=== PATIENT | female | born 1975 | race African-American/Black ===

== ENCOUNTER 2016-12-17 05:19 | Day surgery (SDC) | payer BC ==
[2016-12-15 16:10] VITALS: BMI 39.1
[2016-12-17] MEDS ORDERED: MIDAZOLAM HCL 2 MG/2 ML SINGLE DOSE VIAL ONE (08:41)
[2016-12-17] MEDS ORDERED: PROPOFOL 20 ML ONE ×2 (08:41)
[2016-12-17] MEDS ORDERED: IBUPROFEN 800 MG/8 ML IJ IVPB ONE (08:48)
[2016-12-17] MEDS ORDERED: ONDANSETRON 4 MG/2 ML VIAL IVPUSH PRN (09:41)
[2016-12-17] MEDS ORDERED: oxyCODONE HCL 5 MG TABLET PO PRN (09:41)
[2016-12-17] MEDS ORDERED: LACTATED RINGERS SOLUTION 1,000 ML IV SCH (09:45)
--- NOTE | 2016-12-17 10:10 | OP ---
DATE OF OPERATION: 12/17/2016 PREOPERATIVE DIAGNOSIS: Abnormal uterine bleeding, leiomyomatous uterus. OPERATION : Suction dilatation and curettage and hysteroscopy. SURGEON: Katerina Estevez MD ANESTHESIA: General. ANESTHESIOLOGIST: Lisseth Gonzalez MD FINDINGS: A large amount of clots coming out of the os, uterus enlarged. DESCRIPTION OF PROCEDURE: Patient was taken to the operating room and placed in dorsal lithotomy position, prepped and draped in the usual sterile fashion. A timeout was performed in compliance with hospital regulation. Speculum was placed in the vagina. Anterior lip of the cervix grasped with a single-tooth tenaculum. Clots were seen coming out of the cervical os. Cervix was then dilated to accommodate the number 8 curette. Suction curettage was then performed, followed by hysteroscopy. Visualization revealed no endometrial polyps and no fibroids. All instruments were then removed. Patient tolerated the procedure well. ESTIMATED BLOOD LOSS: 30 mL Malaika ANDERSON/[id number]
[2016-12-17 10:28] VITALS: TEMP 97.7
[2016-12-17 12:40] VITALS: BP 118/74; PULSE 71
[2016-12-17] MEDS ORDERED: IBUPROFEN 400 MG TABLET (FP) PO PRN (13:30)
[2016-12-17] MEDS ORDERED: ACETAMINOPHEN 325 MG TABLET (FP) PO PRN (13:30)
--- NOTE | 2016-12-17 13:32 | HP ---
History & Physical Update - History History: No Change - Physical Physical: No Change - Assessment Assessment: No Change - Plan Plan: No Change
--- NOTE | 2016-12-17 13:37 | OP ---
Operative Note - Note: Operative Date: 12/17/16 Pre-Operative Diagnosis: nal bleeding iabnormal vag Operation: hysteroscopy DC Findings: no polyps or myomas seen Post-Operative Diagnosis: Same as Pre-op Surgeon: Katerina Estevez Anesthesia: General Operative Report Dictated: Yes
--- NOTE | 2016-12-18 12:13 | PATH ---
Surgical Pathology Report Patient Name: FABIOLA RAHMAN Med. Rec. #: [id number] /Age/Gender: 1975 (Age: 41) / F Account: [id number] Location: [facility] SURGICAL Taken: 12/17/2016 Received: 12/17/2016 Reported: 12/18/2016 Physicians: Katerina Estevez M.D. Specimen(s) Received UTERINE CONTENTS Clinical History Abnormal uterine bleeding Final Diagnosis UTERUS, SUCTION CURETTAGE: PROLIFERATIVE ENDOMETRIUM WITH FOCAL AREA SUGGESTIVE OF DISORDERED PROLIFERATIVE ENDOMETRIUM. NO ENDOMETRIAL HYPERPLASIA OR CARCINOMA IDENTIFIED. Electronically Signed Levon Rai M.D. Gross Description Received in formalin labeled "uterine contents," is a 2.5 x 2.3 x 0.3 cm aggregate of schmitt soft tissue fragments. The formalin is filtered and the specimen is entirely submitted in one cassette. /12/17/201612/17/2016
== END 2016-12-17 13:10 | disposition home or self-care (01) ==
LOC: JASU-SURG 05:19
PROVIDERS: ATTEND Obstetrics & Gynecology
PROC: 0UDB8ZX Extraction of Endometrium, Via Natural or Artificial Opening Endoscopic, Diagnostic (ICD-10-PCS; principal; 2016-12-17 08:30)
DX: N93.9 Abnormal uterine and vaginal bleeding, unspecified (principal); D25.9 Leiomyoma of uterus, unspecified
CPT/HCPCS: 88305-TC; 94760

== ENCOUNTER 2017-03-17 14:29 | Observation (INO) | payer BC ==
[2017-03-17 14:36] VITALS: BMI 39.1
--- NOTE | 2017-03-17 14:50 | PDOC ---
History of Present Illness - General Chief Complaint: Blood Transfusion Stated Complaint: Blood Transfusion SENT BY PCP Time Seen by Provider: 03/17/17 14:32 History Source: Patient - History of Present Illness Initial Comments: 03/17/17 15:07 Patient is a 41 y.o. female who presents at the behest of her induction machine operator after pre- operative labs showed a Hb 6.9. Patient is scheduled for a uterine myomectomy 2 / to fibroids on 03/22/17. Patient notes she has had active vaginal bleeding for > 1 month and uses 10 pads daily. Patient endorses lightheadedness, palpitations, shortness of breath. Past History - Past Medical History Allergies/Adverse Reactions: Allergies Allergy/AdvReac Type Severity Reaction Status Date / Time No Known Allergies Allergy Verified 03/17/17 14:35 Home Medications: Ambulatory Orders Ibuprofen [Advil -] 400 mg PO PRN 12/17/16 Ibuprofen [Motrin -] 400 mg PO PRN 12/17/16 Anemia: Yes COPD: No - Reproductive History (#): 5 Para: 3 Therapeutic (s) & number: Yes (2) Tubal Ligation: Yes Spontaneous : 0 - Suicide/Smoking/Psychosocial Hx Smoking Status: No Smoking History: Never smoked Number of Cigarettes Smoked Daily: 0 Hx Alcohol Use: No Drug/Substance Use Hx: No Substance Use Type: None Review of Systems - Review of Systems Constitutional: No: Chills, Fever HEENTM: No: Blurred Vision, Double Vision Respiratory: Yes: Shortness of Breath. No: Cough Cardiac (ROS): Yes: Lightheadedness, Palpitations. No: Chest Pain ABD/GI: No: Constipated, Diarrhea, Nausea, Vomiting : Yes: Other (vaginal bleeding). No: Burning, Dysuria All Other Systems: Reviewed and Negative *Physical Exam - Vital Signs Last Vital Signs Temp Pulse Resp BP Pulse Ox 98.3 F 96 H 20 110/67 100 03/17/17 14:31 03/17/17 14:31 03/17/17 14:31 03/17/17 14:31 03/17/17 14:31 - Physical Exam General Appearance: Yes: Nourished, Appropriately Dressed Neck: positive: Trachea midline, Supple Respiratory/Chest: positive: Lungs Clear, Normal Breath Sounds. negative: Respiratory Distress, Accessory Muscle Use Cardiovascular: positive: S1, S2, Tachycardia Female Pelvic Exam: positive: cervical os closed, vaginal bleeding (pooling of blood in vaginal vault; closed cervical os) Gastrointestinal/Abdominal: positive: Soft Integumentary: positive: Normal Color, Dry, Warm Neurologic: positive: Fully Oriented, Alert ED Treatment Course - LABORATORY CBC & Chemistry Diagram: 03/17/17 14:50 03/17/17 14:50 Medical Decision Making - Medical Decision Making 03/17/17 16:12 Patient is a 41 y.o. female who presents with low Hb (pre-operative of 6.9 @ induction machine operator Office) and repeat of 7.3 in our ED who presents for blood transfusion prior to her myomectomy scheduled for 03/22/17. On PE patient is hemodynamically stable and pelvic exam shows pooling of blood in the vaginal vault with closed cervical os and some vaginal wall bulging. Patient's induction machine operator Dr. Hernandez contacted -- requests to not change date (03/22) of previously scheduled myomectomy. Patient admitted to hospitalist service, Dr. Quijano for transfusion and H&H monitoring. *DC/Admit/Observation/Transfer Diagnosis at time of Disposition: Anemia Qualifiers: Anemia type: unspecified type Qualified Code(s): D64.9 - Anemia, unspecified - Referrals - Patient Instructions - Post Discharge Activity
--- NOTE | 2017-03-17 14:54 | PDOC ---
Rapid Medical Evaluation Chief Complaint: Blood Transfusion Time Seen by Provider: 03/17/17 14:32 Medical Evaluation: Allergies Allergy/AdvReac Type Severity Reaction Status Date / Time No Known Allergies Allergy Verified 03/17/17 14:35 Vital Signs Temp Pulse Resp BP Pulse Ox 98.3 F 96 H 20 110/67 100 03/17/17 14:31 03/17/17 14:31 03/17/17 14:31 03/17/17 14:31 03/17/17 14:31 03/17/17 14:54 I have performed a brief in-person evaluation of this patient. The patient presents with a chief complaint of: Hg 6.9, sent per Dr. Estevez ( OBGYN) s/p pre-op labs this morning. I have ordered the following: Labs, EKG, PRBC The patient will proceed to the ED for further evaluation. Discharge Disposition - Diagnosis Anemia Qualifiers: Anemia type: unspecified type Qualified Code(s): D64.9 - Anemia, unspecified - Referrals - Patient Instructions - Post Discharge Activity
[2017-03-17 15:16] LABS: MCH 26.9 pg (25.7-33.7); MCHC 32.3 g/dl (32.0-36.0); MEAN CELL VOLUME 83.4 fl (80-96); MEAN PLT VOLUME 8.7 fl (7.5-11.1); PLATELET COUNT 314 K/MM3 (134-434); WHITE BLOOD COUNT 7.7 K/mm3 (4.0-10.0)
[2017-03-17 15:35] LABS: INR 1.09 (0.82-1.09); PROTHROMBIN TIME (PATIENT) 12.3 SEC (9.98-11.88)
--- NOTE | 2017-03-17 15:36 | PDOC ---
Attending Attestation - HPI HPI: 03/17/17 15:45 The patient is a 41 year old female with history of uterine fibroids who presents to the ED complaining of approximately 3 months of vaginal bleeding. She states she is scheduled for a myomectomy next week. Today, pre-op labs showed a hemoglobin of 6.9 and she was sent to the ED for transfusions. On evaluation, the patient endorses mild suprapubic cramping, lightheadedness, generalized weakness, and SOB. The patient denies any nausea or vomiting. She denies chest pain. She denies fever or chills. PCP: None OBGYN: Dr. Estevez - Physicial Exam PE: 03/17/17 16:07 AAOX3, NAD EOMI, no conjuctival pallor heart rrr, no murmurs rubs or gallops abdomen: +mild suprapubic tenderness, no rebound or guarding. no masses lungs clear to auscultation, no wheezing or crackles +pooling of blood in vaginal vault, os is closed <Ching Kevin - Last Filed: 03/17/17 16:07> - Resident Resident Name: Kelly Gilbert - ED Attending Attestation I have performed the following: I have examined & evaluated the patient, The case was reviewed & discussed with the resident, I agree w/resident's findings & plan, Exceptions are as noted - Medical Decision Making 03/17/17 15:35 41 yo F with y/o irreggular bleeding, and menhorrhagia daily x3 mo due to fibroids, sent for anemia 6.9 by ob/ host coordinator found on preop labs for myomectomy. on exam awake alert lungs clear heart rrr no abd tenderness. plan : transfuse, will d/w ob/ host coordinator. emily admit observation. <Abiola Gentile - Last Filed: 03/17/17 17:23> Heart Score/ECG Review #1 General ECG Interpretation: Sinus Rhythm, Normal Rate (88), Normal Intervals, No acute ischemic changes (TWI v1 - V2) <Abiola Gentile - Last Filed: 03/17/17 17:23>
[2017-03-17 15:38] LABS: ACTIVATED PTT 34.2 SECONDS (26.9-34.4)
[2017-03-17 15:39] LABS: ALBUMIN 3.6 g/dl (3.4-5.0); ALK PHOS 63 U/L (45-117); ANION GAP 7 (8-16); BILIRUBIN,TOTAL 0.2 mg/dL (0.2-1.0); CALCIUM 8.2 mg/dL (8.5-10.1); CO2 26 mmol/L (21-32); CREATININE 0.8 mg/dL (0.55-1.02); GLUCOSE,RANDOM 95 mg/dL (74-106); SGOT/AST 19 U/L (15-37); SGPT/ALT 29 U/L (12-78); TOT PROT 7.1 g/dl (6.4-8.2)
--- NOTE | 2017-03-17 16:44 | HP ---
Admitting History and Physical - Admission Chief Complaint: Hgb 6.9 History of Present Illness: This is a 41 year old female with no significant past medical history except uterine fibroids sent in to ED from her ELECTRONIC LAB TECHNICIAN with pre op hgb of 6.9. Pt has had continuos bleeding since January and is due for a uterine myomectomy on . Recently, she found herself sob with exertion and ambulation and increasingly fatigued, sleeping more. Currently, she is dizzy and short of breath after exertion in bed and unable to keep eyes open. She feels tired. She is currently bleeding, reports large clots. She denies chest pain, palpations, nausea, vomiting, hematochezia. History Source: Patient Limitations to Obtaining History: No Limitations - Past Medical History Reproductive: Yes: Fibroids ...LMP: 11/25/16 - Smoking History Smoking history: Never smoked Aproximately how many cigarettes per day: 0 - Alcohol/Substance Use Hx Alcohol Use: No - Social History Usual Living Arrangement: Yes: With Child ADL: Independent Home Medications - Allergies Allergies/Adverse Reactions: Allergies Allergy/AdvReac Type Severity Reaction Status Date / Time No Known Allergies Allergy Verified 03/17/17 14:35 - Home Medications Home Medications: Ambulatory Orders Ibuprofen [Advil -] 400 mg PO PRN 12/17/16 Ibuprofen [Motrin -] 400 mg PO PRN 12/17/16 Review of Systems - Review of Systems Constitutional: reports: Lethargy Eyes: reports: No Symptoms HENT: reports: No Symptoms Neck: reports: No Symptoms Cardiovascular: reports: No Symptoms Respiratory: reports: SOB on Exertion Gastrointestinal: reports: No Symptoms Genitourinary: reports: Vaginal Bleeding Musculoskeletal: reports: No Symptoms Integumentary: reports: No Symptoms Neurological: reports: Dizziness, Weakness Endocrine: reports: No Symptoms Hematology/Lymphatic: reports: No Symptoms Psychiatric: reports: No Symptoms Physical Examination Vital Signs: Vital Signs Temperature 98.3 F 03/17/17 14:31 Pulse Rate 96 H 03/17/17 14:31 Respiratory Rate 20 03/17/17 14:31 Blood Pressure 110/67 03/17/17 14:31 O2 Sat by Pulse Oximetry (%) 100 03/17/17 14:31 Constitutional: Yes: No Distress Eyes: Yes: Conjunctiva Clear HENT: Yes: Atraumatic Neck: Yes: Supple, Trachea Midline Cardiovascular: Yes: Regular Rate and Rhythm, S1, S2 Respiratory: Yes: Regular, CTA Bilaterally Gastrointestinal: Yes: Normal Bowel Sounds, Soft, Tenderness (LUQ) Renal/: Yes: WNL Musculoskeletal: Yes: WNL Extremities: Yes: WNL Edema: No Integumentary: Yes: WNL Neurological: Yes: Alert, Oriented, Cran Nerves II-XII Intact Psychiatric: Yes: Alert, Oriented Labs: CBC, BMP 03/17/17 14:50 03/17/17 14:50 Problem List - Problems (1) Fibroids Code(s): D25.9 - LEIOMYOMA OF UTERUS, UNSPECIFIED (2) Abnormal hemoglobin (Hgb) Code(s): D58.2 - OTHER HEMOGLOBINOPATHIES (3) Anemia associated with acute blood loss Code(s): D62 - ACUTE POSTHEMORRHAGIC ANEMIA (4) Anemia Code(s): D64.9 - ANEMIA, UNSPECIFIED Qualifiers: Anemia type: unspecified type Qualified Code(s): D64.9 - Anemia, unspecified Assessment/Plan Assessment: 41 year old female with active bleeding uterine fibroids admitted with low hgb requiring transfusion Plan: 1. Acute blood loss anemia with active bleeding - Due to uterine fibroids - Transfuse 2 units packed cells - Keep scheduled appt with ROTARY PLANER SET UP OPERATOR - Check AM CBC Visit type - Emergency Visit Emergency Visit: Yes Care time: The patient presented to the Emergency Department on the above date and was hospitalized for further evaluation of their emergent condition. - New Patient This patient is new to me today: Yes Date on this admission: 03/17/17 - Critical Care Critical Care patient: No
[2017-03-17] MEDS ORDERED: ACETAMINOPHEN 325 MG TABLET (FP) PO PRN (17:05)
[2017-03-18 07:13] VITALS: BP 106/66; TEMP 98.4
[2017-03-18 07:50] LABS: BASOPHIL 0.3 % (0-2.0); EOSINOPHIL 0.8 % (0-4.5); MCH 27.3 pg (25.7-33.7); MCHC 32.6 g/dl (32.0-36.0); MEAN CELL VOLUME 83.5 fl (80-96); MEAN PLT VOLUME 8.5 fl (7.5-11.1); NEUTROPHILS 51.2 % (42.8-82.8); PLATELET COUNT 270 K/MM3 (134-434); RDW 13.9 % (11.6-15.6); WHITE BLOOD COUNT 6.9 K/mm3 (4.0-10.0)
[2017-03-18 09:03] LABS: ANION GAP 7 (8-16); CO2 24 mmol/L (21-32); GLUCOSE,RANDOM 92 mg/dL (74-106)
[2017-03-18 09:04] LABS: CREATININE 0.7 mg/dL (0.55-1.02)
--- NOTE | 2017-03-18 10:06 | DS ---
Physical Exam: SUBJECTIVE: Patient seen and examined. OBJECTIVE: Vital Signs Period Temp Pulse Resp BP Sys/Cunningham Pulse Ox Last 24 Hr 98.3 F-98.8 F 82-96 18-20 97-113/53-67 98-100 PHYSICAL EXAM GENERAL: The patient is awake, alert, and fully oriented, in no acute distress. HEAD: Normal with no signs of trauma. EYES: PERRL, extraocular movements intact, sclera anicteric, conjunctiva clear. ENT: Ears normal, nares patent, oropharynx clear without exudates, moist mucous membranes. NECK: Trachea midline, full range of motion, supple. LUNGS: Breath sounds equal, clear to auscultation bilaterally, no wheezes, no crackles, no accessory muscle use. HEART: Regular rate and rhythm, S1, S2 without murmur, rub or gallop. ABDOMEN: Soft, nontender, nondistended, normoactive bowel sounds, no guarding, no rebound, no hepatosplenomegaly, no masses. EXTREMITIES: 2+ pulses, warm, well-perfused, no edema. NEUROLOGICAL: Cranial nerves II through XII grossly intact. Normal speech, gait not observed. PSYCH: Normal mood, normal affect. SKIN: Warm, dry, normal turgor, no rashes or lesions noted. LABS Laboratory Results - last 24 hr 03/17/17 03/17/17 03/17/17 14:50 14:50 14:50 WBC 7.7 RBC 2.67 L Hgb 7.2 L Hct 22.2 L MCV 83.4 MCH 26.9 MCHC 32.3 RDW 14.0 Plt Count 314 MPV 8.7 Neutrophils % Lymphocytes % Monocytes % Eosinophils % Basophils % PT with INR 12.30 H INR 1.09 PTT (Actin FS) 34.2 Sodium 141 Potassium 4.3 Chloride 108 H Carbon Dioxide 26 Anion Gap 7 L BUN 10 Creatinine 0.8 Creat Clearance w eGFR > 60 Random Glucose 95 Calcium 8.2 L Total Bilirubin 0.2 AST 19 D ALT 29 Alkaline Phosphatase 63 Total Protein 7.1 Albumin 3.6 Urine HCG, Qual Blood Type Antibody Screen Crossmatch Spec Expiration Date 03/17/17 03/17/17 03/18/17 14:50 19:25 04:25 WBC RBC Hgb Hct MCV MCH MCHC RDW Plt Count MPV Neutrophils % Lymphocytes % Monocytes % Eosinophils % Basophils % PT with INR INR PTT (Actin FS) Sodium Potassium Chloride Carbon Dioxide Anion Gap BUN Creatinine Creat Clearance w eGFR Random Glucose Calcium Total Bilirubin AST ALT Alkaline Phosphatase Total Protein Albumin Urine HCG, Qual Negative Blood Type Cancelled Cancelled Antibody Screen Cancelled Cancelled Crossmatch See Detail See Detail Spec Expiration Date Cancelled Cancelled 03/18/17 06:45 WBC 6.9 RBC 3.14 L Hgb 8.6 L D Hct 26.2 L D MCV 83.5 MCH 27.3 MCHC 32.6 RDW 13.9 Plt Count 270 MPV 8.5 Neutrophils % 51.2 Lymphocytes % 39.4 Monocytes % 8.3 Eosinophils % 0.8 D Basophils % 0.3 PT with INR INR PTT (Actin FS) Sodium Potassium Chloride Carbon Dioxide Anion Gap BUN Creatinine Creat Clearance w eGFR Random Glucose Calcium Total Bilirubin AST ALT Alkaline Phosphatase Total Protein Albumin Urine HCG, Qual Blood Type Antibody Screen Crossmatch Spec Expiration Date HOSPITAL COURSE: Date of Admission:03/17/17 Date of Discharge: 03/18/17 Minutes to complete discharge: 45 Discharge Summary Reason For Visit: ANEMIA Current Active Problems Abnormal hemoglobin (Hgb) (Acute) Anemia (Acute) Anemia associated with acute blood loss (Acute) Fibroids (Acute) Hospital Course: This is a 41 year old female with no significant past medical history except uterine fibroids sent in to ED from her MATTE CUTTER with pre op hgb of 6.9. Pt has had continuos bleeding since January and is due for a uterine myomectomy on . Recently, she found herself sob with exertion and ambulation and increasingly fatigued, sleeping more. Currently, she is dizzy and short of breath after exertion in bed and unable to keep eyes open. She feels tired. She is currently bleeding, reports large clots. She denies chest pain, palpations, nausea, vomiting, hematochezia. 1. Acute blood loss anemia with active bleeding - Due to uterine fibroids - Transfused 2 units packed cells- Hgb 8.6 - Case d/w with MOBILITY SCOOTER REPAIRER ABBY Wolfe - patient to continue previously prescribed progesterone and keep appointment for myomectomy on Wednesday - used 1 pad overnight. Usual menstrual flow reported by patient. - currently asymptomatic Condition: Stable - Instructions Diet, Activity, Other Instructions: Take Tylenol as directed by security tech's instructions for pain. Keep your appointment for Wednesday with Dr. Estevez. Return to ER for worsening bleeding, severe pain, dizziness, lightheadedness, chest pain, shortness of breath or any other concerns. Referrals: Katerina Estevez MD [Staff Physician] - Disposition: HOME - Home Medications Comprehensive Discharge Medication List: Ambulatory Orders Acetaminophen [Tylenol .Regular Strength -] 650 mg PO Q4H PRN tablet 03/18/17 Problem List - Problems (1) Abnormal hemoglobin (Hgb) Code(s): D58.2 - OTHER HEMOGLOBINOPATHIES (2) Anemia associated with acute blood loss Code(s): D62 - ACUTE POSTHEMORRHAGIC ANEMIA (3) Fibroids Code(s): D25.9 - LEIOMYOMA OF UTERUS, UNSPECIFIED This patient is new to me today: Yes Date on this admission: 03/19/17 Emergency Visit: Yes ED Registration Date: 03/17/17 Care time: The patient presented to the Emergency Department on the above date and was hospitalized for further evaluation of their emergent condition. Critical Care patient: No - Discharge Referral Referred to [facility] Med [facility].: No
[2017-03-18 12:38] VITALS: PULSE 83
--- NOTE | 2017-03-18 16:35 | EKG ---
Test Reason : Blood Pressure : / mmHG Vent. Rate : 088 BPM Atrial Rate : 088 BPM P-R Int : 158 ms QRS Dur : 072 ms QT Int : 374 ms P-R-T Axes : 063 047 050 degrees QTc Int : 452 ms NORMAL SINUS RHYTHM CANNOT RULE OUT ANTERIOR INFARCT , AGE UNDETERMINED ABNORMAL ECG NO PREVIOUS ECGS AVAILABLE Confirmed by ALLAN CHRISTY MD ([id number]) on 03/18/2017 4:34:44 PM Referred By: Confirmed By:ALLAN CHRISTY MD
== END 2017-03-18 15:37 | disposition home or self-care (01) ==
LOC: JER 14:29 → JERBED 16:08 → J5S 17:52 → UNDODISOB 03-18 13:33
PROVIDERS: ADMIT Internal Medicine; ATTEND Nurse Practitioner Family
PROC: 30233N1 Transfusion of Nonautologous Red Blood Cells into Peripheral Vein, Percutaneous Approach (ICD-10-PCS; principal; 2017-03-17)
DX: D64.9 Anemia, unspecified (principal); D25.9 Leiomyoma of uterus, unspecified; D58.2 Other hemoglobinopathies; D62 Acute posthemorrhagic anemia
CPT/HCPCS: 36415; 36430; 80048; 80053; 84703; 85025; 85027; 85610; 85730; 93005; 93010; 99285-25; G0378; P9038; P9058

== ENCOUNTER 2017-03-22 06:04 | Day surgery (SDC) | payer BC ==
[2017-03-19 18:15] VITALS: BMI 40.1
[2017-03-22] MEDS ORDERED: ePHEDrine SULFATE 50 MG/1 ML AMPULE ONE ×2 (07:29)
[2017-03-22] MEDS ORDERED: PROPOFOL 20 ML ONE ×3 (07:29)
[2017-03-22] MEDS ORDERED: MIDAZOLAM HCL 2 MG/2 ML SINGLE DOSE VIAL ONE (07:29)
[2017-03-22] MEDS ORDERED: ceFAZolin SODIUM 1 GM VIAL ONE (07:32)
[2017-03-22] MEDS ORDERED: DEXAMETHASONE SOD PHOSPHATE 4 MG/1 ML VIAL ONE (07:32)
[2017-03-22] MEDS ORDERED: KETOROLAC TROMETHAMINE 30 MG/1 ML VIAL ONE (07:32)
--- NOTE | 2017-03-22 08:16 | HP ---
History & Physical Update - History History: No Change - Physical Physical: No Change - Assessment Assessment: No Change - Plan Plan: No Change
[2017-03-22] MEDS ORDERED: IBUPROFEN 400 MG TABLET (FP) PO PRN (08:17)
[2017-03-22] MEDS ORDERED: ACETAMINOPHEN 325 MG TABLET (FP) PO PRN (08:17)
--- NOTE | 2017-03-22 08:19 | OP ---
Operative Note - Note: Operative Date: 03/22/17 Pre-Operative Diagnosis: submucosal myoma. menorrhagia. anemia Post-Operative Diagnosis: Same as Pre-op Surgeon: Katerina Estevez Anesthesia: General Operative Report Dictated: Yes
[2017-03-22] MEDS ORDERED: ONDANSETRON 4 MG/2 ML VIAL IVPUSH PRN (09:08)
[2017-03-22] MEDS ORDERED: PROMETHAZINE HCL 25 MG/1 ML VIAL IVPUSH PRN (09:08)
[2017-03-22] MEDS ORDERED: LACTATED RINGERS SOLUTION 1,000 ML IV SCH (09:15)
--- NOTE | 2017-03-22 10:49 | OP ---
DATE OF OPERATION: 03/22/2017 PREOPERATIVE DIAGNOSIS: Anemia, menorrhagia, and submucosal myoma. OPERATION: Hysteroscopic myomectomy, hysteroscopy, and suction dilation and curettage. POSTOPERATIVE DIAGNOSIS: Anemia, menorrhagia, and submucosal myoma. SURGEON: Katerina Estevez MD ANESTHESIA: General. DESCRIPTION OF PROCEDURE: The patient was taken to the operating room and placed in dorsal lithotomy position, prepped and draped in the usual sterile fashion. A time-out was performed in accordance with hospital regurgitation. Speculum was placed in the vagina. Anterior lip of cervix was grasped with a single-tooth tenaculum. The cervix was then dilated to accommodate the operative hysteroscope. In the posterior aspect of the uterus, submucosal myoma was noted. The myoma was then cut and shaved. Suction dilation and curettage was then performed. All specimens were submitted to Pathology. Hemostasis was achieved. Estimated blood loss was 20 mL. Malaika ANDERSON/[id number]
[2017-03-22 14:03] VITALS: BP 142/71; PULSE 93; TEMP 98.7
--- NOTE | 2017-03-24 14:48 | PATH ---
Surgical Pathology Report Patient Name: FABIOLA RAHMAN [facility]. Rec. #: [id number] /Age/Gender: 1975 (Age: 41) / F Account: [id number] Location: [facility] SURGICAL Taken: 03/22/2017 Received: 03/22/2017 Reported: 03/24/2017 Physicians: Katerina Estevez M.D. Specimen(s) Received MYOMA Clinical History Anemia, uterine fibroids Final Diagnosis MYOMA, MYOMECTOMY: FRAGMENTS OF SUBMUCOSAL LEIOMYOMA (WEIGHT: ~ 1 GM). INACTIVE ENDOMETRIUM. Electronically Signed Lynne Randolph M.D. Gross Description Received in formalin labeled "myoma," is a 1 g, 2.5 x 2.0 x 0.3 cm aggregate of schmitt, firm to rubbery portions of tissue, consistent with morcellated fibroids. The formalin is filtered and the specimen is entirely submitted in one cassette. 03/22/201703/22/2017
== END 2017-03-22 12:30 | disposition home or self-care (01) ==
LOC: JASU-SURG 06:04
PROVIDERS: ATTEND Obstetrics & Gynecology
PROC: 0UB98ZZ Excision of Uterus, Via Natural or Artificial Opening Endoscopic (ICD-10-PCS; principal; 2017-03-22 08:00)
PROC: 0UDB8ZX Extraction of Endometrium, Via Natural or Artificial Opening Endoscopic, Diagnostic (ICD-10-PCS; 2017-03-22 08:00)
DX: N92.0 Excessive and frequent menstruation with regular cycle (principal); D64.9 Anemia, unspecified; D25.0 Submucous leiomyoma of uterus
CPT/HCPCS: 84703; 88305-TC; 94760